=== PATIENT | female | born 1995 | race Caucasian/White ===

== ENCOUNTER 2019-02-09 21:49 | Emergency (ER) | payer MEDICAID, OTHER ==
[~2019-02-09] VITALS: Ht 154.9 cm; Wt 61.2 kg
[2019-02-09 22:44] VITALS: Ht 154.9 cm; Wt 61.2 kg
[2019-02-09 23:08] VITALS: BP 123/71
== END 2019-02-09 23:08 | disposition home or self-care (01) ==
LOC: ED 21:49
DX: J06.9 Acute upper respiratory infection, unspecified (principal)